=== PATIENT | male | born 1975 | race Caucasian/White ===

== ENCOUNTER → 2023-12-22 12:50 | Outpatient (BNVA) | payer OTHER, SELFPAY | PROVIDERS: Family Provider Family Medicine; PCP Family Medicine; Visit Provider Family Medicine | DX: Z00.00 Encounter for general adult medical examination without abnormal findings (principal) | CPT/HCPCS: 80053; 80061; 83036; 85025 ==

== ENCOUNTER 2024-06-30 13:11 | Outpatient (CLI) | payer OTHER, SELFPAY ==
--- NOTE | 2024-06-30 13:15 | XR_ITS ---
WS: [id number] XR lumbar spine 2-3V* [id number] REASON FOR EXAM: acute on chronic low back pain, R sciatica FINDINGS: Mild rotatory dextroscoliosis. Straightening of the normal lordosis. No significant vertebral body abnormality. Mild osteophytosis of the lumbar vertebrae L1-L5. Mild narrowing of the L3-L4 and L5-S1 disc space. Moderate narrowing of the L4- L5 disc space. No significant listhesis. XR/XR lumbar spine 2-3V* [id number] IMPRESSION: Lumbar degenerative spondylosis as above with progression of the L4-L5 disc dis ease with development of rotatory dextro compared to 06/21/2017.
== END 2024-06-30 13:12 | disposition home or self-care (01) ==
LOC: RAD 13:12
PROVIDERS: Family Provider Family Medicine; PCP Family Medicine; Visit Provider Family Medicine
DX: M54.31 Sciatica, right side (principal); M51.369 Other intervertebral disc degeneration, lumbar region without mention of lumbar back pain or lower extremity pain; M41.86 Other forms of scoliosis, lumbar region; M47.896 Other spondylosis, lumbar region; M47.897 Other spondylosis, lumbosacral region; M25.78 Osteophyte, vertebrae
CPT/HCPCS: 72100

== ENCOUNTER 2024-07-27 12:27 | Outpatient (RCR) | payer OTHER, SELFPAY | END 2024-08-23 23:59 | disposition home or self-care (01) | LOC: SPT 12:27 | PROVIDERS: Visit Provider Family Medicine | DX: M54.31 Sciatica, right side (principal); M62.81 Muscle weakness (generalized) | CPT/HCPCS: 97110; 97161 ==

== ENCOUNTER 2024-08-10 13:56 | Emergency (ER) | payer OTHER, SELFPAY ==
[2024-08-10 14:14] VITALS: BP 146/91; PULSE 87; RESP 16; TEMP 36.8; O2SAT 95; BMI 31.7
--- NOTE | 2024-08-10 14:29 | ED_ITS ---
HPI - Back Pain/Injury General: Chief Complaint: Back Pain/Injury Stated Complaint: right back & leg pain Time Seen by Provider: 08/10/24 14:18 Source: patient and family () Mode of arrival: ambulatory Limitations: no limitations History of Present Illness: Patient is a very nice 48-year-old male who presents today with back pain. 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 Over the past few months worsening radiating into right buttock and down right leg. Saw PCP last month and taking NSAID/muscle relaxer and doing physical therapy. Patient presenting to ED today with concerns of a warm sensation across his lower back with radiating down the back of right leg and two episodes of fecal incontinence over the past 1.5 weeks. No urinary incontinence/retention. No saddle par esthesia. MD elicited complaint: back pain Pertinent past history: prior back pain and incontinence (Bowel) Onset (ago): year(s) Timing: progressively worsening Severity: severe Quality: burning, sharp, stabbing and tingling Location: lumbar spine and right lower back Radiation: buttocks, right upper leg and right leg below the knee Exacerbating factors: movement, walking and lifting Relieving factors: none Associated symptoms: Reports fecal incontinence (2 episodes) and tingling/nu mbness/burning; Deny abdominal pain, chills, dysuria, fatigue, fever(s), nausea, urinary urgency or vomiting Work related injury: No Related Data Previous Rx's ?Medication ?Instructions ?Recorded cyclobenzaprine 5 mg tablet 5 mg PO TID PRN muscle spa sm #60 07/24/24 tabs meloxicam 15 mg tablet 15 mg PO DAILY #30 tabs 06/26 05/20 Allergies Allergy/AdvReac Type Severity Reaction Status Date / Time [place] Allergy Mild Unknown Verified 06/30/24 12:32 Review of Systems Const: Denies: fever(s), chills, body aches, fatigue, malaise or night sweats Card: Denies: chest pain or palpitations Resp: Denies: dyspnea GI: Reports: fecal incontinence (2 episodes); Denies: abdominal pain, nausea, vomiting, GI cramping or rectal pain : Denies: flank pain, difficulty urinating, dysuria, urinary frequency, urinary urgency, urinary hesitancy or urinary incontinence Musc: Reports: back pain; Denies: neck pain, extremity swelling, joint pain, joint swelling, joint redness or joint warmth Skin/Breast: Denies: rash, pruritus or erythema Neuro: Denies: headache(s), weakness in extremities or sensory changes PFSH ED PFSH: Surgical History No history of previous surgery Family History Father Diabetes CAD (coronary artery disease) Mother Stroke Grandfather Prostate cancer Social History Smoking and tobacco/nicotine status: current every day tobacco/nicotine user Quit status (tobacco/nicotine): has quit using Year quit tobacco: 2017 Former quit date comment: 25 pack year Alcohol intake: current Alcohol intake frequency: 3 or more drinks per day Alcohol type: beer Household members: spouse Marital status: Number of children: 1 Number of grandchildren: 12 Previous occupational history: [employer] ([employer]) Leisure activites: [employer] Special adonis needs: No Agree to transfusion: Yes Physical Exam Const: COMMON NORMALS: no acute distress, average body habitus, patient oriented x3, no limitations, healthy appearing, alert and well nourished GENERAL APPEARANCE: cooperative ORIENTATION/CONSCIOUSNESS: Yes awake, Yes oriented to person, Yes oriented to place and Yes oriented to time Neck/C-Spine: COMMON NORMALS: full ROM and no meningeal signs GENERAL: Yes normal visual inspection Resp: COMMON NORMALS: normal respiratory effort and clear to auscultation bilaterally AUSCULTATION: clear to auscultation bilaterally Cardio: COMMON NORMALS: regular rate and regular rhythm RATE: regular rate RHYTHM: regular rhythm GI: COMMON NORMALS: Normal to inspection, nondistended, normoactive bowel sounds present, Soft to palpation and non-tender PALPATION: Yes Soft to palpation : COMMON NORMALS: Yes no CVA tenderness BLADDER/KIDNEY EXAM: Yes no CVA tenderness Back/Pelvis: COMMON NORMALS: no CVA tenderness, thoracic and lumbar spine normal to inspection, thoraco-lumbar ROM normal and straight leg raise negative bilaterally LUMBAR SPINE/LOWER BACK: Yes normal to inspection, Yes pain with ROM, Yes lumbar spinal tenderness and Yes paraspinal muscle tenderness PELVIS: Yes buttocks normal SACROILIAC JOINTS: Yes SI joint(s) abnormal SI joint details: tender to palpation SACRUM: no tenderness COCCYX: no tenderness Extremity: COMMON NORMALS: capillary refill normal, no clubbing, cyanosis or edema, no calf tenderness and no pedal edema GENERAL: Yes normal exam except as noted Neuro: COMMON NORMALS: patient oriented x3, moves all extremities, no focal motor deficits, no sensory deficits noted and gait normal SENSORIUM/ORIENTATION: Yes alert, Yes oriented to person, Yes oriented to place and Yes oriented to time MENINGEAL SIGNS: Yes no meningeal signs MOTOR EXAM: 5/5 motor strength present throughout Course Vital Signs: Vital signs: Vital Signs Temperature 98.2 F 08/10/24 14:14 Pulse Rate 87 08/10/24 14:14 Respiratory Rate 16 08/10/24 14:14 Blood Pressure 146/91 08/10/24 14:14 Pulse Oximetry 95 08/10/24 14:14 Oxygen Delivery Me thod Room Air 08/10/24 14:14 MDM - Back Pain/Injury Medical Decision Making Patient is a nice 48-year-old male who presents to ED today with a complaint of acute on chronic back pain. He had been seen his primary care provider for these issues and is currently undergoing physical therapy. He felt like pain was progressively worsening. He did mention two episodes of bowel incontinence over the past 1 to 2 weeks. Because of this, emergent MRI was ordered after discussing with Dr. Jefferson. MRI imaging showing no acute findings. His visualized cord, conus medullaris and cauda equina are unremarkable. He does have degenerative changes and does have severe narrowing at L4-L5 and right L5- S1 neural foramen. Will have him follow-up with Dr. Stout. He feels comfortable continuing to take his cyclobenzaprine and meloxicam for discomfort. Medical Records I reviewed the patient's medical records. Labs Radiology Impressions Lumbar Spine MRI 08/10/24 14:55 IMPRESSION: 1. No acute findings. Degenerative disc disease with mild multilevel stenosis of the spinal canal, as described. There is also severe narrowing of the bilateral L4-L5 and right L5-S1 neural foramen. 2. Cervical spinal stenosis at C6-C7 likely moderate incompletely assessed on localizer imaging. Dedicated cervical spine MRI could be performed for follow up. All radiology interpretation(s) finalized by discharge Discharge Plan Discharge Patient Disposition: Home Clinical Impression: Right sided sciatica Condition: Stable Prescriptions: No Action meloxicam 15 mg tablet 15 mg PO DAILY Qty: 30 0RF cyclobenzaprine 5 mg tablet 5 mg PO TID PRN (Reason: muscle spasm) Qty: 60 0RF Discharge Orders: Discharge ED (Routine); Ordered 08/10/24 Ordered By: Zita Girard Patient Instructions: Sciatica (ED), Sciatica Activity Restrictions/Additional Instructions: As we discussed, I have placed a case management referral to get you an appointment to see Dr. Stout, orthopedic labeling specialist. He will go over today's MRI results and discuss with you further options including conservative therapies, pain management, surgery. Print Language: Yi Coding Level of Care Code ED [employer] Operator for Donald Prather
--- NOTE | 2024-08-10 14:55 | MRR_ITS ---
PROCEDURE INFORMATION: Exam: MR Lumbar Spine Without and With Contrast Exam date and time: 08/10/2024 5:31 PM Age: 48 years old Clinical indication: Pain; Lumbago with sciatica; Bilateral; Additional info: Back pain, R le neuropathy, fecal incontinence TECHNIQUE: Imaging protocol: Magnetic resonance imaging of the lumbar spine without and with contrast. Contrast material: MULTIHANCE; Contrast volume: 20 ml; Contrast route: INTRAVENOUS (IV); COMPARISON: CR XR lumbar spine 2-3V* [id number] 06/30/2024 1:19 PM FINDINGS: Bones/joints: The alignment is near anatomic. The vertebral body heights are maintained. There is diffuse disc space desiccation with height loss and small anterior osteophytes. No suspicious marrow signal. No acute fracture. There are type 1 endplate degenerative changes present at L4-L5. 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 Cervical spinal degenerative disc disease seen on localizer imaging greatest C6-C7 where there is likely moderate stenosis of the spinal canal incompletely assessed. Spinal cord: Visualized cord, conus medullaris and cauda equina are unremarkable. T12-L1: There is minimal diffuse disc bulging seen on sagittal imaging only without stenosis. L1-L2: There is minimal diffuse disc bulging with superimposed right-sided subarticular focal disc protrusion with mild stenosis of the spinal canal. Mild bilateral facet arthrosis with mild narrowing of both neural foramen. L2-L3: diffuse disc bulging and degenerative facet arthrosis causes mild stenosis of the spinal canal. Mild left neural foraminal stenosis. L3-L4: diffuse disc bulging and degenerative facet arthrosis causes mild stenosis of the spinal canal. Moderate bilateral neural foraminal stenosis. L4-L5: diffuse disc bulging and degenerative facet arthrosis is present without significant stenosis of the spinal canal. Severe bilateral neural foraminal stenosis. L5-S1: There is diffuse disc bulging with superimposed central focal disc protrusion and facet arthrosis with mild narrowing of the spinal canal. There is severe right and moderate left neural foraminal stenosis present. Soft tissues: Unremarkable. MR/MR lumbar spine wo/w con [id number] IMPRESSION: 1. No acute findings. Degenerative disc disease with mild multilevel stenosis of the spinal canal, as described. There is also severe narrowing of the bilateral L4-L5 and right L5-S1 neural foramen. 2. Cervical spinal stenosis at C6-C7 likely moderate incompletely assessed on localizer imaging. Dedicated cervical spine MRI could be performed for follow up.
[2024-08-10] MEDS: orphenadrine 30 mg/mL Inj 2 mL 60 MG IVP (15:16)
[2024-08-10] MEDS: dexamethasone 4 mg/mL INJ 8 MG IVP (15:17)
[2024-08-10] MEDS: ketorolac 30 mg/mL INJ IVP (15:17)
[2024-08-10] MEDS: gadobenate dimeglumine 20 mL vial IV (17:50)
[2024-08-10] MEDS: morphine 4 mg/mL SDV 1 mL IVP (19:17)
--- NOTE | 2024-08-11 07:33 | DCPLANNER ---
messaged ortho for er f/u
== END 2024-08-10 19:24 | disposition home or self-care (01) ==
PROVIDERS: Emergency Provider Physician Assistant
DX: M54.31 Sciatica, right side (principal); Z72.0 Tobacco use
CPT/HCPCS: 72158; 96374; 96375; 99285; J1100; J1885; J2270; J2360

== ENCOUNTER → 2024-08-15 13:32 | Outpatient (BNVA) | payer OTHER, SELFPAY | PROVIDERS: PCP Family Medicine; Visit Provider Orthopaedic Surgery | DX: M54.31 Sciatica, right side (principal) | CPT/HCPCS: 72110 ==